=== PATIENT | male | born 1950 | race Caucasian/White ===

== ENCOUNTER → 2017-01-12 | Outpatient (CLI) | payer BC, OTHER ==
[2017-01-12 07:57] LABS: HEMATOCRIT 49.5 % (42.0-52.0); HEMOGLOBIN 16.7 g/dL (14.0-18.0); MEAN CORPUSCULAR HEMOGLOBIN 33.4 PG (27-31); MEAN CORPUSCULAR HGB CONC 33.7 g/dL (33-37); MEAN PLATELET VOLUME 10.1 FL (7.4-12.2)
[2017-01-12 08:01] LABS: BLOOD UREA NITROGEN 12 mg/dL (7-22); BUN/CREATININE RATIO 13.33 (6-20); CALCIUM 9.2 mg/dL (8.7-10.7); EST GLOMERULAR FILTRATION > 60 (>60 ml/min/1.73m(2)); SERUM ALBUMIN 4.2 g/dL (3.5-4.8)
[2017-01-12 08:02] LABS: CHOL/HDL RATIO 4.2 RATIO (0-4.0)
[2017-01-12 08:29] LABS: FREE T4 (FREE THYROXINE) 1.03 ng/dL (0.93-1.71)
== END ==
LOC: LAB 07:22
PROVIDERS: ATTEND Family Medicine
DX: Z00.00 Encounter for general adult medical examination without abnormal findings (principal); E03.9 Hypothyroidism, unspecified; E78.5 Hyperlipidemia, unspecified
CPT/HCPCS: 36415; 80053; 80061; 84439; 84443; 85027

== ENCOUNTER → 2017-03-08 | Outpatient (CLI) | payer BC, OTHER ==
[2017-03-08 14:44] LABS: FREE T4 (FREE THYROXINE) 1.14 ng/dL (0.93-1.71)
== END ==
LOC: LAB 13:18
PROVIDERS: ATTEND Family Medicine
DX: E03.9 Hypothyroidism, unspecified (principal)
CPT/HCPCS: 36415; 84439; 84443